=== PATIENT | female | born 1945 | race Caucasian/White ===

== ENCOUNTER → 2017-03-27 | Outpatient (CLI) | payer MEDICARE, OTHER ==
--- NOTE | 2017-03-27 11:23 | RADRPT ---
PROCEDURE: Bilateral knee x-ray CLINICAL INDICATION: PAIN TECHNIQUE: PA weightbearing slightly flexed, AP weightbearing slightly flexed, lateral and sunrise views were obtained of the right and left knees. COMPARISON: None FINDINGS: There is no evidence of acute fractures, dislocations or patellar subluxations. There is moderate t o severe degenerative joint disease of the right and left knees worse involving the lateral componen ts. The bony mineralization is normal. No focal bony blastic or lytic lesions. No evidence of rig ht or left knee joint effusions. There is atherosclerotic vascular disease present. IMPRESSION: 1. Moderate to severe degenerate joint disease of both knees. 2. No acute fractures dislocations patellar subluxation or joint effusions. RPTAT:AAJJ Physician Thania Date Time Electronically viewed and signed by Physician Thania on 03/27/2017 11:22 BM/
== END | disposition home or self-care (01) ==
LOC: HKI 10:45
PROVIDERS: ATTEND Orthopaedic Surgery
DX: M25.562 Pain in left knee (principal); M25.561 Pain in right knee; M17.0 Bilateral primary osteoarthritis of knee
CPT/HCPCS: 20610; 73564; G0463; J7327

== ENCOUNTER → 2017-03-31 | Outpatient (CLI) | payer MEDICARE, OTHER ==
--- NOTE | 2017-03-31 12:06 | PN ---
Date/Time of Note Date/Time of Note DATE: 03/31/17 TIME: 12:02 Assessment/Plan VTE Prophylaxis VTE Prophylaxis Intervention: ambulation, other Assessment/Plan Assessment/Plan ASSESSMENT: Left knee osteoarthritis PLAN: The patient underwent a Monovisc injection without adverse event to her left knee today. I did advise her to modify her activity and take over-the- counter nonsteroidal anti-inflammatories or Tylenol as needed. Additionally she should apply ice to left knee if necessary. We will see her back on an as- needed basis but she understands that if she does not have significant improvement she may require surgical intervention including a total knee arthroplasty. PROCEDURE NOTE: The procedure was fully explained to the patient and informed consent was obtained prior to the start of the procedure. The area was prepped and draped in sterile fashion using Betadine. Ethyl chloride was used to anesthetize the superolateral aspect of the left knee and 4 cc of Monovisc was injected intra-articularly. The patient tolerated procedure well. Sterile dressing was applied. All questions and concerns were addressed at the time of procedure. Subjective 24 Hr Interval Summary Free Text/Dictation Gina presents today for a follow-up evaluation on her left knee. She underwent a Monovisc injection to her her right knee last week, and is here today for an injection to her left knee. She had some postinjection pain that has resolved. She has not seen significant benefit from a right knee injection at this point yet. She denies any adverse events however. She presents today for a Visco supplementation injection to her left knee. Exam/Review of Systems Exam On exam today, she is alert and oriented 4, and in no acute distress. Exam of the left knee demonstrates no effusion. She does have 3+ patellofemoral crepitus. There is no erythema or warmth noted. Range of motion is 0-120. She does have diffuse medial and lateral joint line tenderness. Varus and valgus forces are stable. She is neurovascular intact distally. ELIANA RODRIGUEZ PA-C Mar 31, 2017 12:06
== END | disposition home or self-care (01) ==
LOC: HKI 09:28
PROVIDERS: ATTEND Orthopaedic Surgery
DX: M17.12 Unilateral primary osteoarthritis, left knee (principal)